=== PATIENT | female | born 1935 | race Caucasian/White ===

== ENCOUNTER 2016-10-15 10:35 | Outpatient (CLI) | payer MEDICARE ==
--- NOTE | 2016-10-15 13:46 | Diagnostic Imaging Report ---
CT Chest without IV contrast HISTORY: Right lung nodule COMPARISON: None. Technique: Axial images were obtained from the base of the neck to the upper abdomen without IV contrast. Reconstructions were made. Total DLP 182, CTDI 5 Findings: Evaluation of the mediastinum is limited due to lack of IV contrast. No evidence of mediastinal lymphadenopathy. The ascending aorta measures up to 3.5 cm. Diffuse atherosclerotic vascular disease is noted with diffuse coronary artery calcifications. Borderline cardiomegaly is seen with trace pericardial fluid. Mild chronic lung changes are seen with hypoventilatory and atelectatic changes and a slightly mosaic pattern of the lungs. There is a 4 mm calcified granuloma the right upper lobe. There is a 3 mm calcified granuloma of the left upper lobe. Additional few small 2 to 3 mm nodules of the left lower lobe are noted. Atelectatic and mild passive atelectasis and consolidation changes of the lung bases are seen with small left pleural effusion. The upper abdomen demonstrates atherosclerotic vascular disease. Advanced degenerative changes of the spine are seen with multilevel spinal compression deformities and vertebroplasty changes at T8 and T12. There is 2 mm posterior retropulsion of T11. IMPRESSION: Small calcified granulomas of the lungs. Additional 2 to 3 mm pulmonary nodules of the left lung base are also noted, nonspecific, but may also be due to prior infectious or inflammatory process. If indicated a follow-up CT examination 12-18 months may be obtained for further assessment/monitoring. Chronic lung changes with atelectatic changes and bibasal passive atelectasis/consolidative changes and small left effusion. Pneumonia of the left lung base cannot be excluded. Mild mosaic appearance of the lungs which may be due to air-trapping and obstructive airway disease. Parenchymal disease may also be considered. Please correlate clinically Diffuse atherosclerotic vascular disease including coronary artery calcifications Multilevel spinal compression deformities with vertebroplasty changes seen at T8 and T12. There is moderate compression deformity of T11 with 2 mm posterior retropulsion.
== END 2016-10-15 14:18 | disposition home or self-care (01) ==
LOC: RAD 10:35
PROVIDERS: ATTEND Family Medicine
DX: J84.10 Pulmonary fibrosis, unspecified (principal); I99.8 Other disorder of circulatory system; G95.29 Other cord compression
CPT/HCPCS: 71250-TC